=== PATIENT | male | born 1975 | race Caucasian/White ===

== ENCOUNTER 2020-04-23 00:22 | Emergency (ER) | payer OTHER ==
[~2020-04-23] VITALS: Ht 180.3 cm; Wt 73.5 kg
--- NOTE | 2020-04-23 00:28 | NUR ---
PATIENT CAME TO ER BED 9 BIB [employer] AND [facility] FROM [facility] C/O SEIZURE FOR 10MINUTES. PATIENT DENIES DRUG USE, ALCOHOL USE, AND TRAUMA TO THE HEAD. PATIENT IS AAOX2. NO SOB. BREATHING EVENLY AND UNLABORED ON ROOM AIR. CONNECTED TO THE IRON CUTTER.
--- NOTE | 2020-04-23 00:33 | NUR ---
blood glucose 103
--- NOTE | 2020-04-23 00:33 | NUR ---
called lab for specimen cook pickled meat
--- NOTE | 2020-04-23 00:37 | NUR ---
BROUGHT TO CT
--- NOTE | 2020-04-23 00:46 | NUR ---
BROUGHT BACK FROM CT.
--- NOTE | 2020-04-23 00:55 | NUR ---
URINE COLLECTED AND SENT TO THE LAB. CALLED LAB TO FOLLOW UP.
[2020-04-23] MEDS ORDERED: IV NS 0.9% 1,000 ML IV ONE (01:00)
[2020-04-23 01:40] LABS: ALANINE AMINOTRANSFERASE 27 U/L (12-78); ALBUMIN 3.9 g/dL (3.4-5.0); ALCOHOL, BLOOD < 3 mg/dL (0-0); ALKALINE PHOSPHATASE 88 U/L (46-116); ASPARTATE AMINOTRANSFERASE 23 U/L (15-37); BILIRUBIN,DIRECT 0.1 mg/dL (0.0-0.2); BILIRUBIN,TOTAL 0.5 mg/dL (0.2-1.0); CALCIUM, SERUM 9.2 mg/dL (8.5-10.1); CARBON DIOXIDE 25 mmol/L (21-32); CHLORIDE 105 mmol/L (98-107); GLUCOSE 131 mg/dL (74-106); POTASSIUM 3.5 mmol/L (3.5-5.1); SODIUM SERUM 142 mmol/L (136-145); TOTAL PROTEIN, SERUM 7.1 g/dL (6.4-8.2); UREA NITROGEN, BLOOD 16 mg/dL (7-18)
[2020-04-23 01:57] LABS: BASOPHILS % (AUTO) 0.4 % (0.0-2.0); EOSINOPHILS % (AUTO) 0.6 % (0.0-6.0); HEMATOCRIT 43 % (39-51); HEMOGLOBIN 14.3 g/dL (13.5-17.5); LYMPHOCYTES # (AUTO) 1.4 /CMM (0.8-4.8); LYMPHOCYTES % (AUTO) 20.9 % (20.0-44.0); MEAN CORPUSCULAR HGB CONC 33 g/dl (31.0-36.0); MEAN CORPUSCULAR VOLUME 93 fL (80-96); MONOCYTES # (AUTO) 0.7 /CMM (0.1-1.30); MONOCYTES % (AUTO) 10.7 % (2.0-12.0); NEUTROPHILS # (AUTO) 4.3 /CMM (1.8-8.9); NEUTROPHILS % (AUTO) 67.4 % (43.0-81.0); PLATELET COUNT (AUTO) 192 /CMM (150-450); RED BLOOD CELL COUNT(AUTO) 4.62 MIL/uL (4.5-6.0); WHITE BLOOD COUNT (AUTO) 6.5 K/uL (4.3-11.0)
--- NOTE | 2020-04-23 03:28 | NUR ---
IV removed. Catheter intact and site benign. Pressure and 4x4 applied to site. No bleeding noted.
--- NOTE | 2020-04-23 03:28 | NUR ---
Patient discharged to assisted in stable condition. Written and verbal after care instructions given. Patient verbalizes understanding of instruction. Pt awake and responsive. No acute distress noted. Pt left with [employer].
[2020-04-23 03:29] VITALS: BP 127/76
== END 2020-04-23 03:43 ==
LOC: ER 00:25
DX: R56.9 Unspecified convulsions (principal); Z88.8 Allergy status to other drugs, medicaments and biological substances; Z88.1 Allergy status to other antibiotic agents
CPT/HCPCS: 36415; 70450; 80048; 80076; 80307; 80320; 82962; 85025; 93005; 96360; 99285; J7030; G0480

== ENCOUNTER 2020-12-26 16:45 | Emergency (ER) | payer OTHER ==
[~2020-12-26] VITALS: Ht 185.4 cm; Wt 72.1 kg
[2020-12-26] MEDS ORDERED: IV NS 0.9% 1,000 ML BAG IV ONE (17:30)
[2020-12-26] MEDS ORDERED: ONDANSETRON HCL/PF 4 MG/2 ML VIAL IVP ONE (17:30)
[2020-12-26] MEDS ORDERED: MORPHINE SULFATE INJ 2 MG/ML DISP.SYRIN IV ONE (17:30)
--- NOTE | 2020-12-26 17:30 | NUR ---
BIBRA39/ [employer] C/O DIFFUSE ABDOMINAL PAIN, + NAUSEA SINCE YESTERDAY. RATES ABDOMINAL PAIN /10. ABDOMEN SOFT AND NON-DISTENDED. WILL CONTINUE TO MONITOR THE PATIENT.
--- NOTE | 2020-12-26 17:30 | NUR ---
Note undone in EDM - 12/26/20 at 1749 by SHARATH LEFT INGUINAL PAIN X 2 MONTHS,HAVING DIFFICULTY URINATING X 3 DAYS. RATES ABDOMINAL PAIN 09/19. ABDOMEN SOFT AND NON-DISTENDED. RESPIRATION REGULAR AND UNLABORED. DENIES SOB. WILL CONTINUE TO MONITOR THE PATIENT.
[2020-12-26] MEDS ORDERED: MORPHINE SULFATE INJ 4 MG/ML DISP.SYRIN ONE (17:36)
[2020-12-26] MEDS ORDERED: ONDANSETRON HCL/PF 4 MG/2 ML VIAL ONE (17:36)
--- NOTE | 2020-12-26 17:47 | NUR ---
STARTED IV LINE, BLOOD SPECIMEN COLLECTED AND SENT TO THE LAB. THE LINE IS SALINE LOCKED.
[2020-12-26 17:48] LABS: BASOPHILS % (AUTO) 0.5 % (0.0-2.0); EOSINOPHILS % (AUTO) 0.4 % (0.0-6.0); HEMATOCRIT 44 % (39-51); HEMOGLOBIN 14.5 g/dL (13.5-17.5); LYMPHOCYTES # (AUTO) 0.9 K/uL (0.8-4.8); LYMPHOCYTES % (AUTO) 10.3 % (20.0-44.0); MEAN CORPUSCULAR HGB CONC 33 g/dl (31.0-36.0); MEAN CORPUSCULAR VOLUME 94 fL (80-96); MONOCYTES # (AUTO) 0.6 K/uL (0.1-1.30); MONOCYTES % (AUTO) 6.9 % (2.0-12.0); NEUTROPHILS # (AUTO) 7.4 K/uL (1.8-8.9); NEUTROPHILS % (AUTO) 81.9 % (43.0-81.0); PLATELET COUNT (AUTO) 169 K/uL (150-450); RED BLOOD CELL COUNT(AUTO) 4.68 MIL/uL (4.5-6.0); WHITE BLOOD COUNT (AUTO) 9.1 K/uL (4.3-11.0)
[2020-12-26 18:00] LABS: CALCIUM, SERUM 8.9 mg/dL (8.5-10.1); CREATININE 0.9 mg/dL (0.6-1.3); POTASSIUM 4.2 mmol/L (3.5-5.1)
[2020-12-26 18:06] LABS: BILIRUBIN,DIRECT 0.1 mg/dL (0.0-0.2); BILIRUBIN,TOTAL 0.4 mg/dL (0.2-1.0); TOTAL PROTEIN, SERUM 7.3 g/dL (6.4-8.2)
[2020-12-26] MEDS ORDERED: ONDA4TAB5 PO (18:52)
[2020-12-26] MEDS ORDERED: ACET-2605 PO (18:52)
[2020-12-26 18:59] VITALS: BP 131/81
--- NOTE | 2020-12-26 19:00 | NUR ---
Patient discharged to home in stable condition. Written and verbal after care instructions given. Patient verbalizes understanding of instruction.IV removed. Catheter intact and site benign. Pressure and 4x4 applied to site. No bleeding noted.
== END 2020-12-26 19:00 | disposition home or self-care (01) ==
LOC: ER 16:51
DX: R10.84 Generalized abdominal pain (principal); R11.0 Nausea; Z98.890 Other specified postprocedural states; Z88.8 Allergy status to other drugs, medicaments and biological substances; Z88.1 Allergy status to other antibiotic agents; Z88.6 Allergy status to analgesic agent
CPT/HCPCS: 36415; 80048; 80076; 83690; 85025; 96361; 96374; 96375; 99284; J2270; J2405; J7030